=== PATIENT | female | born 1995 | race African-American/Black ===

== ENCOUNTER 2022-02-03 12:27 | Emergency (ER) | payer MEDICAID ==
[~2022-02-03] VITALS: Ht 162.6 cm; Wt 68.0 kg
[2022-02-03 12:38] VITALS: BP 124/79
[2022-02-03] MEDS ORDERED: AMOX-494 MT (12:56)
== END 2022-02-03 13:18 | disposition home or self-care (01) ==
LOC: ER 13:05
DX: J32.9 Chronic sinusitis, unspecified (principal)
CPT/HCPCS: 99283

== ENCOUNTER → 2022-03-18 | Emergency (ER) | payer MEDICAID, OTHER ==
[~2022-03-18] VITALS: Ht 162.6 cm; Wt 69.0 kg
[~2022-03-18] MED LIST: AMOX-494 MT; IBUP-2029 MT; IBUPROFEN 600MG TABLET PO NR; IBUPROFEN 600MG TABLET PO ONE
[2022-03-18 22:08] VITALS: BP 133/99
== END ==
LOC: ER 21:32
DX: S50.02XA Contusion of left elbow, initial encounter (principal); S40.012A Contusion of left shoulder, initial encounter; R03.0 Elevated blood-pressure reading, without diagnosis of hypertension; V49.49XA Driver injured in collision with other motor vehicles in traffic accident, initial encounter; Y93.89 Activity, other specified; Y92.488 Other paved roadways as the place of occurrence of the external cause
CPT/HCPCS: 73060; 73080; 99284